=== PATIENT | male | born 2000 | race Hispanic/Latino ===

== ENCOUNTER 2021-01-21 19:42 | Inpatient (IN) | payer OTHER, SELFPAY ==
[~2021-01-21 19:42] MED LIST: Iopamidol-370 76% 500 ML 1 ML ONE
[2021-01-21] MEDS ORDERED: Fentanyl 100 MCG/2 ML VIAL ONE (19:58)
[2021-01-21 20:05] LABS: Hemoglobin 16.1 g/dL (14.0-18.0); Mean Corpuscular HGB CONC 35.4 g/dL (32.0-36.0); Mean Corpuscular Hemoglobin 31.2 pg (27.0-31.0); Mean Corpuscular Volume 88.2 fL (78.0-98.0); Platelet Count 325 thou/uL (130-400); Red Blood Cell (RBC) Count 5.14 mill/uL (4.70-6.10); White Blood Cell (WBC) Count 21.3 thou/uL (4.8-10.8)
[2021-01-21 20:20] LABS: Band 9 % (5-11); Lymphocytes 21 % (21-51); MDiff Complete? YES; Metamyelocyte 1 % (0-0); Monocytes 5 % (0-10); Myelocyte 3 % (0-0); Neutrophil 60 % (42-75); Nucleated RBC 1 % (0); Platelet Morphology Comment Appears Adequate; RBC Morphology Normal
[2021-01-21 20:24] LABS: ALT (SGPT) 99 U/L (8-55); AST (SGOT) 88 U/L (5-34); Albumin 4.6 g/dL (3.5-5.0); Alkaline Phosphatase 89 U/L (40-110); Anion Gap 14 mmol/L (10-20); BUN (Urea Nitrogen) 14 mg/dL (8.9-20.6); Bilirubin, Total 0.7 mg/dL (0.2-1.2); Calc. Creatinine Clearance 0 mL/min (70-130); Calcium 9.5 mg/dL (7.8-10.44); Carbon Dioxide 23 mmol/L (22-29); Chloride 108 mmol/L (98-107); Globulin 2.7 g/dL (2.4-3.5); Glucose 127 mg/dL (70-105); Potassium 4.1 mmol/L (3.5-5.1); Protein, Total 7.3 g/dL (6.0-8.3); Sodium 141 mmol/L (136-145)
[2021-01-21] MEDS ORDERED: Boostrix 0.5 ML (Tdap) VIAL ONE (20:35)
[2021-01-21 22:28] LABS: SARS-CoV-2 NAA Rapid Test Not Detected (NotDetected)
[2021-01-21] MEDS ORDERED: Dextrose 50% Abboject 50 ML SYRINGE SLOW IVP PRN (23:15)
[2021-01-21] MEDS ORDERED: Ondansetron PF 4 MG/2 ML Vial IVP PRN (23:15)
[2021-01-21] MEDS ORDERED: traMADol HCl 50 MG TAB PO PRN (23:15)
[2021-01-21] MEDS ORDERED: Promethazine HCl 25 MG/ML VIAL IM PRN ×2 (23:15)
[2021-01-21] MEDS ORDERED: hydrALAZINE 20 MG/ML VIAL SLOW IVP PRN (23:15)
[2021-01-21] MEDS ORDERED: Ondansetron ODT 4 MG TAB PO PRN (23:15)
[2021-01-21] MEDS ORDERED: Cyclobenzaprine 10 MG TAB PO PRN (23:15)
[2021-01-21] MEDS ORDERED: Dextrose 5% in Water 1,000 ML IV PRN (23:15)
[2021-01-21] MEDS ORDERED: Famotidine 20 MG TAB PO SCH (23:30)
[2021-01-21] MEDS: Sodium Chloride 0.9% 1,000 ML IV SCH (23:35)
[2021-01-21] MEDS: Acetaminophen 500 MG TAB PO SCH (23:36)
[2021-01-21] MEDS: traMADol HCl 50 MG TAB PO SCH (23:37)
[2021-01-21] MEDS: Morphine 2 MG/ML VIAL SLOW IVP PRN (23:39)
[2021-01-21 23:57] VITALS: BMI 40.6
[2021-01-22 00:06] LABS: Hemoglobin 13.9 g/dL (14.0-18.0); Platelet Count 319 thou/uL (130-400)
[2021-01-22] MEDS: Morphine 2 MG/ML VIAL SLOW IVP PRN ×2 (01:39→04:01)
[2021-01-22] MEDS ORDERED: Lactated Ringer's 500 ML IV SCH (02:15)
[2021-01-22 03:27] LABS: #Eosinphils 0.1 thou/uL (0.0-0.7); #Lymphocytes 1.1 thou/uL (1.20-3.40); #Monocytes 1.6 thou/uL (0.11-0.59); #Neutrophils 15.7 thou/uL (1.40-6.50); %Eosinophils 0.4 % (0.0-10.0); %Lymphocytes 5.9 % (21.0-51.0); %Monocytes 8.8 % (0.0-10.0); %Neutrophils 84.8 % (42.0-75.0); Hemoglobin 12.8 g/dL (14.0-18.0); Mean Corpuscular HGB CONC 34.6 g/dL (32.0-36.0); Mean Corpuscular Hemoglobin 30.3 pg (27.0-31.0); Mean Corpuscular Volume 87.7 fL (78.0-98.0); Platelet Count 295 thou/uL (130-400); RBC Distribution Width 12.1 % (11.5-14.5); Red Blood Cell (RBC) Count 4.24 mill/uL (4.70-6.10); White Blood Cell (WBC) Count 18.5 thou/uL (4.8-10.8)
[2021-01-22 03:50] LABS: Anion Gap 14 mmol/L (10-20); BUN (Urea Nitrogen) 17 mg/dL (8.9-20.6); Calc. Creatinine Clearance 186 mL/min (70-130); Calcium 8.4 mg/dL (7.8-10.44); Carbon Dioxide 20 mmol/L (22-29); Chloride 109 mmol/L (98-107); Glucose 158 mg/dL (70-105); Magnesium 1.7 mg/dL (1.6-2.6); Phosphorus 4.4 mg/dL (2.3-4.7); Potassium 4.4 mmol/L (3.5-5.1); Sodium 139 mmol/L (136-145)
[2021-01-22] MEDS: Acetaminophen 500 MG TAB PO SCH ×4 (05:39→23:20)
[2021-01-22] MEDS ORDERED: Ibuprofen 800 MG TAB PO SCH (06:00)
[2021-01-22] MEDS ORDERED: CEFAZOLIN 2 GM in Premix Bag 1 BAG IVPB SCH (06:30)
[2021-01-22] MEDS: Famotidine 20 MG TAB PO SCH ×2 (07:11→20:52)
[2021-01-22] MEDS: traMADol HCl 50 MG TAB PO SCH ×4 (07:23→23:21)
[2021-01-22] MEDS: Sodium Chloride 0.9% 1,000 ML IV SCH ×4 (07:23→23:23)
[2021-01-22] MEDS ORDERED: Magnesium 2 GM/50 ML 2 GM in Premix Bag 1 BAG IVPB SCH (07:45)
[2021-01-22 10:44] LABS: Lactic Acid 2.2 mmol/L (0.5-2.2)
[2021-01-22] MEDS: Ibuprofen 800 MG TAB PO SCH ×2 (11:35→18:07)
[2021-01-22] MEDS ORDERED: Midazolam HCl 2 mg/2 ml Vial ONE (12:00)
[2021-01-22] MEDS ORDERED: Fentanyl 250 MCG/5 ML VIAL ONE (12:00)
[2021-01-22] MEDS ORDERED: Lidocaine 2% Jelly 5 ML TUBE ONE (12:00)
[2021-01-22] MEDS ORDERED: Vecuronium 10 MG VIAL ONE (12:35)
[2021-01-22] MEDS ORDERED: Dexamethasone 20 MG/5 ML VIAL ONE (12:35)
[2021-01-22] MEDS ORDERED: Glycopyrrolate 0.2 MG/ML 5 ML SYRINGE ONE (12:35)
[2021-01-22] MEDS ORDERED: Lidocaine 1% PF 5 ML VIAL ONE (12:35)
[2021-01-22] MEDS ORDERED: Rocuronium Bromide 10 MG/ML (10ML VIAL) ONE (12:35)
[2021-01-22] MEDS ORDERED: Ondansetron PF 4 MG/2 ML Vial ONE (12:35)
[2021-01-22] MEDS ORDERED: PHENYLEPHRINE-NS 100 MCG/ML 10 ML SYRINGE ONE (12:35)
[2021-01-22] MEDS ORDERED: PROPOFOL 200 MG/20 ML VIAL ONE (12:35)
[2021-01-22] MEDS ORDERED: Albumin 5% 500 ML ONE (13:03)
[2021-01-22] MEDS ORDERED: HYDROmorphone 2 MG/ML VIAL SLOW IVP PRN (16:36)
[2021-01-22] MEDS ORDERED: Promethazine HCl 25 MG/ML VIAL IM PRN (16:36)
[2021-01-22] MEDS ORDERED: Meperidine HCl/PF 25 MG/ML VIAL SLOW IVP PRN ×2 (16:36)
[2021-01-22] MEDS ORDERED: Promethazine HCl 25 MG/ML VIAL IVPB PRN (16:36)
[2021-01-22] MEDS ORDERED: Ondansetron HCl/PF 4 MG/2 ML Vial IVP PRN (16:36)
[2021-01-22] MEDS ORDERED: hydrALAZINE 20 MG/ML VIAL ONE (17:06)
[2021-01-22] MEDS ORDERED: Fentanyl 100 MCG/2 ML VIAL ONE (17:07)
[2021-01-22] MEDS: CEFAZOLIN 2 GM in Premix Bag 1 BAG IVPB SCH (21:09)
[2021-01-23] MEDS: Ibuprofen 800 MG TAB PO SCH ×3 (00:59→18:21)
[2021-01-23] MEDS: CEFAZOLIN 2 GM in Premix Bag 1 BAG IVPB SCH ×2 (05:16→15:30)
[2021-01-23] MEDS: Acetaminophen 500 MG TAB PO SCH ×3 (05:17→18:22)
[2021-01-23] MEDS: traMADol HCl 50 MG TAB PO SCH ×3 (05:17→18:22)
[2021-01-23] MEDS: Sodium Chloride 0.9% 1,000 ML IV SCH ×3 (07:04→18:53)
[2021-01-23] MEDS: Famotidine 20 MG TAB PO SCH ×2 (07:04→20:43)
[2021-01-23 07:39] LABS: #Lymphocytes 1.2 thou/uL (1.20-3.40); #Neutrophils 6.1 thou/uL (1.40-6.50); %Basophils 0.2 % (0.0-1.0); %Eosinophils 0.3 % (0.0-10.0); %Neutrophils 73.5 % (42.0-75.0); Hemoglobin 7.2 g/dL (14.0-18.0); Mean Corpuscular HGB CONC 35.1 g/dL (32.0-36.0); Mean Corpuscular Hemoglobin 31.2 pg (27.0-31.0); Mean Platelet Volume 8.3 fL (7.4-10.4); Platelet Count 175 thou/uL (130-400); RBC Distribution Width 11.8 % (11.5-14.5); White Blood Cell (WBC) Count 8.3 thou/uL (4.8-10.8)
[2021-01-23 08:06] LABS: Anion Gap 8 mmol/L (10-20); BUN (Urea Nitrogen) 18 mg/dL (8.9-20.6); Calc. Creatinine Clearance 193 mL/min (70-130); Carbon Dioxide 26 mmol/L (22-29); Chloride 107 mmol/L (98-107); Glucose 122 mg/dL (70-105); Magnesium 2.2 mg/dL (1.6-2.6); Phosphorus 2.5 mg/dL (2.3-4.7); Potassium 4.3 mmol/L (3.5-5.1); Sodium 137 mmol/L (136-145)
[2021-01-23 08:33] LABS: CK (CPK) 5288 U/L (30-200)
[2021-01-23] MEDS ORDERED: Enoxaparin Sodium 30 MG/0.3 ML SYRINGE SC SCH (09:00)
[2021-01-23] MEDS: Gabapentin 300 MG CAP PO SCH ×3 (09:11→20:44)
[2021-01-23] MEDS: Senokot S 8.6-50 MG TAB PO SCH ×2 (09:11→20:43)
[2021-01-23] MEDS: Polyethylene Glycol 3350 17 GM Packet PO SCH (09:11)
[2021-01-24] MEDS: Acetaminophen 500 MG TAB PO SCH ×4 (00:22→18:07)
[2021-01-24] MEDS: traMADol HCl 50 MG TAB PO SCH ×4 (00:26→18:06)
[2021-01-24] MEDS: Sodium Chloride 0.9% 1,000 ML IV SCH ×3 (00:26→08:39)
[2021-01-24] MEDS: Ibuprofen 800 MG TAB PO SCH ×2 (01:21→08:38)
[2021-01-24 07:38] LABS: #Eosinphils 0.2 thou/uL (0.0-0.7); #Lymphocytes 1.3 thou/uL (1.20-3.40); #Neutrophils 6.4 thou/uL (1.40-6.50); %Basophils 0.5 % (0.0-1.0); %Eosinophils 1.7 % (0.0-10.0); %Lymphocytes 15.2 % (21.0-51.0); %Monocytes 10.7 % (0.0-10.0); %Neutrophils 71.9 % (42.0-75.0); Hemoglobin 6.8 g/dL (14.0-18.0); Mean Corpuscular HGB CONC 35.2 g/dL (32.0-36.0); Mean Corpuscular Hemoglobin 31.4 pg (27.0-31.0); Mean Corpuscular Volume 89.3 fL (78.0-98.0); Mean Platelet Volume 8.1 fL (7.4-10.4); Platelet Count 168 thou/uL (130-400); RBC Distribution Width 11.9 % (11.5-14.5); Red Blood Cell (RBC) Count 2.17 mill/uL (4.70-6.10); White Blood Cell (WBC) Count 8.8 thou/uL (4.8-10.8)
[2021-01-24 08:15] LABS: CK (CPK) 6390 U/L (30-200)
[2021-01-24 08:23] LABS: Anion Gap 8 mmol/L (10-20); BUN (Urea Nitrogen) 10 mg/dL (8.9-20.6); Calc. Creatinine Clearance 248 mL/min (70-130); Calcium 8.2 mg/dL (7.8-10.44); Carbon Dioxide 26 mmol/L (22-29); Chloride 110 mmol/L (98-107); Glucose 109 mg/dL (70-105); Phosphorus 1.2 mg/dL (2.3-4.7); Potassium 3.7 mmol/L (3.5-5.1); Sodium 140 mmol/L (136-145)
[2021-01-24] MEDS: Famotidine 20 MG TAB PO SCH ×2 (08:38→20:42)
[2021-01-24] MEDS: Gabapentin 300 MG CAP PO SCH ×3 (08:38→20:42)
[2021-01-24] MEDS: Polyethylene Glycol 3350 17 GM Packet PO SCH (08:38)
[2021-01-24] MEDS: Senokot S 8.6-50 MG TAB PO SCH ×2 (08:38→20:42)
[2021-01-24] MEDS ORDERED: Potassium Phosphate 30 MMOL in Sodium Chloride 0.9% 250 ML 250 ML IVPB SCH (08:45)
[2021-01-25] MEDS: Sodium Chloride 0.9% 1,000 ML IV SCH ×7 (00:29→23:50)
[2021-01-25] MEDS: Acetaminophen 500 MG TAB PO SCH ×5 (00:30→23:45)
[2021-01-25] MEDS: traMADol HCl 50 MG TAB PO SCH ×5 (00:32→23:46)
[2021-01-25] MEDS ORDERED: Albuterol Sulfate 1.25 MG/3 ML NEB NEB SCH (08:15)
[2021-01-25] MEDS: Famotidine 20 MG TAB PO SCH ×2 (08:33→20:15)
[2021-01-25] MEDS: Polyethylene Glycol 3350 17 GM Packet PO SCH (08:33)
[2021-01-25] MEDS: Senokot S 8.6-50 MG TAB PO SCH ×2 (08:33→20:18)
[2021-01-25] MEDS: Gabapentin 300 MG CAP PO SCH ×3 (08:34→20:16)
[2021-01-25 09:42] LABS: #Basophils 0.1 thou/uL (0.0-0.2); #Eosinphils 0.3 thou/uL (0.0-0.7); #Lymphocytes 1.3 thou/uL (1.20-3.40); #Monocytes 0.7 thou/uL (0.11-0.59); #Neutrophils 5.5 thou/uL (1.40-6.50); %Basophils 1.2 % (0.0-1.0); %Eosinophils 4.1 % (0.0-10.0); %Lymphocytes 15.8 % (21.0-51.0); %Monocytes 9.2 % (0.0-10.0); %Neutrophils 69.8 % (42.0-75.0); Hemoglobin 8.4 g/dL (14.0-18.0); Mean Corpuscular HGB CONC 34.7 g/dL (32.0-36.0); Mean Corpuscular Hemoglobin 30.4 pg (27.0-31.0); Mean Corpuscular Volume 87.6 fL (78.0-98.0); Mean Platelet Volume 7.8 fL (7.4-10.4); Platelet Count 214 thou/uL (130-400); RBC Distribution Width 13.1 % (11.5-14.5); Red Blood Cell (RBC) Count 2.77 mill/uL (4.70-6.10); White Blood Cell (WBC) Count 7.9 thou/uL (4.8-10.8)
[2021-01-25 10:09] LABS: Anion Gap 12 mmol/L (10-20); BUN (Urea Nitrogen) 10 mg/dL (8.9-20.6); Calc. Creatinine Clearance 251 mL/min (70-130); Calcium 8.4 mg/dL (7.8-10.44); Carbon Dioxide 26 mmol/L (22-29); Chloride 106 mmol/L (98-107); Glucose 122 mg/dL (70-105); Magnesium 1.9 mg/dL (1.6-2.6); Phosphorus 3.3 mg/dL (2.3-4.7); Potassium 3.6 mmol/L (3.5-5.1); Sodium 140 mmol/L (136-145)
[2021-01-25 10:18] LABS: CK (CPK) 7512 U/L (30-200)
[2021-01-25] MEDS ORDERED: Potassium Phosphate 15 MMOL in Sodium Chloride 0.9% 250 ML 250 ML IVPB SCH (10:45)
[2021-01-25] MEDS ORDERED: Magnesium 2 GM/50 ML 2 GM in Premix Bag 1 BAG IVPB SCH (10:45)
[2021-01-25] MEDS: Albuterol Sulfate 1.25 MG/3 ML NEB NEB SCH ×2 (15:59→22:06)
[2021-01-26] MEDS: traMADol HCl 50 MG TAB PO SCH ×4 (05:21→23:48)
[2021-01-26] MEDS: Acetaminophen 500 MG TAB PO SCH ×4 (05:22→23:48)
[2021-01-26 05:48] LABS: #Basophils 0.1 thou/uL (0.0-0.2); #Eosinphils 0.3 thou/uL (0.0-0.7); #Lymphocytes 1.8 thou/uL (1.20-3.40); #Neutrophils 4.5 thou/uL (1.40-6.50); %Basophils 0.9 % (0.0-1.0); %Lymphocytes 23.3 % (21.0-51.0); %Monocytes 12.5 % (0.0-10.0); %Neutrophils 59.3 % (42.0-75.0); Hemoglobin 8.1 g/dL (14.0-18.0); Mean Corpuscular HGB CONC 34.4 g/dL (32.0-36.0); Mean Corpuscular Hemoglobin 30.3 pg (27.0-31.0); Mean Platelet Volume 7.7 fL (7.4-10.4); Platelet Count 251 thou/uL (130-400); RBC Distribution Width 13.2 % (11.5-14.5); Red Blood Cell (RBC) Count 2.66 mill/uL (4.70-6.10); White Blood Cell (WBC) Count 7.6 thou/uL (4.8-10.8)
[2021-01-26 06:18] LABS: Anion Gap 11 mmol/L (10-20); BUN (Urea Nitrogen) 10 mg/dL (8.9-20.6); Calc. Creatinine Clearance 261 mL/min (70-130); Calcium 8.4 mg/dL (7.8-10.44); Carbon Dioxide 26 mmol/L (22-29); Chloride 107 mmol/L (98-107); Glucose 101 mg/dL (70-105); Magnesium 2.1 mg/dL (1.6-2.6); Potassium 4.8 mmol/L (3.5-5.1); Sodium 139 mmol/L (136-145)
[2021-01-26] MEDS: Albuterol Sulfate 1.25 MG/3 ML NEB NEB SCH (07:44)
[2021-01-26] MEDS: Gabapentin 300 MG CAP PO SCH ×3 (09:37→22:15)
[2021-01-26] MEDS: Famotidine 20 MG TAB PO SCH ×2 (09:37→22:14)
[2021-01-26] MEDS: Senokot S 8.6-50 MG TAB PO SCH ×2 (09:37→22:16)
[2021-01-26] MEDS: Polyethylene Glycol 3350 17 GM Packet PO SCH (09:38)
[2021-01-26] MEDS ORDERED: Albuterol Sulfate 1.25 MG/3 ML NEB NEB PRN (10:21)
[2021-01-26] MEDS: Sodium Chloride 0.9% 1,000 ML IV SCH ×3 (11:05→21:00)
[2021-01-26] MEDS: Ferrous Sulfate 325 MG TAB PO SCH (18:19)
[2021-01-26] MEDS: Ascorbic Acid 500 mg Chewable Tablet PO SCH (22:14)
[2021-01-27] MEDS: Sodium Chloride 0.9% 1,000 ML IV SCH (04:06)
[2021-01-27] MEDS: traMADol HCl 50 MG TAB PO SCH ×3 (05:29→18:36)
[2021-01-27] MEDS: Acetaminophen 500 MG TAB PO SCH ×3 (05:30→18:36)
[2021-01-27 06:09] LABS: #Basophils 0.1 thou/uL (0.0-0.2); #Eosinphils 0.4 thou/uL (0.0-0.7); #Lymphocytes 1.7 thou/uL (1.20-3.40); #Monocytes 1.2 thou/uL (0.11-0.59); #Neutrophils 6.4 thou/uL (1.40-6.50); %Basophils 0.5 % (0.0-1.0); %Eosinophils 4.5 % (0.0-10.0); %Lymphocytes 17.6 % (21.0-51.0); %Monocytes 12.2 % (0.0-10.0); %Neutrophils 65.1 % (42.0-75.0); Hemoglobin 8.2 g/dL (14.0-18.0); Mean Corpuscular HGB CONC 33.4 g/dL (32.0-36.0); Mean Corpuscular Hemoglobin 29.7 pg (27.0-31.0); Mean Corpuscular Volume 88.7 fL (78.0-98.0); Mean Platelet Volume 7.7 fL (7.4-10.4); Platelet Count 328 thou/uL (130-400); RBC Distribution Width 13.3 % (11.5-14.5); Red Blood Cell (RBC) Count 2.78 mill/uL (4.70-6.10); White Blood Cell (WBC) Count 9.8 thou/uL (4.8-10.8)
[2021-01-27 06:18] LABS: Anion Gap 12 mmol/L (10-20); BUN (Urea Nitrogen) 15 mg/dL (8.9-20.6); CK (CPK) 3990 U/L (30-200); Calc. Creatinine Clearance 245 mL/min (70-130); Carbon Dioxide 26 mmol/L (22-29); Chloride 104 mmol/L (98-107); Glucose 100 mg/dL (70-105); Phosphorus 4.5 mg/dL (2.3-4.7); Potassium 4.5 mmol/L (3.5-5.1); Sodium 137 mmol/L (136-145)
[2021-01-27] MEDS: Ferrous Sulfate 325 MG TAB PO SCH ×2 (08:26→16:38)
[2021-01-27] MEDS: Gabapentin 300 MG CAP PO SCH ×3 (08:26→21:02)
[2021-01-27] MEDS: Famotidine 20 MG TAB PO SCH ×2 (08:26→21:02)
[2021-01-27] MEDS: Ascorbic Acid 500 mg Chewable Tablet PO SCH ×2 (08:26→21:02)
[2021-01-27] MEDS: Polyethylene Glycol 3350 17 GM Packet PO SCH (08:27)
[2021-01-27] MEDS: Senokot S 8.6-50 MG TAB PO SCH ×2 (08:27→21:15)
[2021-01-28] MEDS: Acetaminophen 500 MG TAB PO SCH ×4 (00:17→18:31)
[2021-01-28] MEDS: traMADol HCl 50 MG TAB PO SCH ×4 (00:18→18:31)
[2021-01-28 06:49] LABS: Mean Corpuscular HGB CONC 33.9 g/dL (32.0-36.0); Mean Corpuscular Volume 88.4 fL (78.0-98.0); Mean Platelet Volume 7.2 fL (7.4-10.4); Platelet Count 410 thou/uL (130-400); RBC Distribution Width 13.2 % (11.5-14.5); Red Blood Cell (RBC) Count 3.01 mill/uL (4.70-6.10); White Blood Cell (WBC) Count 11.6 thou/uL (4.8-10.8)
[2021-01-28 07:04] LABS: Anion Gap 13 mmol/L (10-20); BUN (Urea Nitrogen) 20 mg/dL (8.9-20.6); Calc. Creatinine Clearance 222 mL/min (70-130); Calcium 9.3 mg/dL (7.8-10.44); Carbon Dioxide 27 mmol/L (22-29); Chloride 102 mmol/L (98-107); Glucose 102 mg/dL (70-105); Magnesium 2.2 mg/dL (1.6-2.6); Phosphorus 4.6 mg/dL (2.3-4.7); Potassium 4.3 mmol/L (3.5-5.1); Sodium 138 mmol/L (136-145)
[2021-01-28 08:26] LABS: Band 13 % (5-11); Eosinophils 9 % (0-10); Lymphocytes 11 % (21-51); MDiff Complete? YES; Metamyelocyte 3 % (0-0); Monocytes 12 % (0-10); Myelocyte 4 % (0-0); Neutrophil 48 % (42-75); Polychromasia MODERATE = 3-4 cells (100X) (0-2/hpf)
[2021-01-28] MEDS: Ferrous Sulfate 325 MG TAB PO SCH ×3 (08:53→20:45)
[2021-01-28] MEDS: Ascorbic Acid 500 mg Chewable Tablet PO SCH ×2 (08:54→20:44)
[2021-01-28] MEDS: Gabapentin 300 MG CAP PO SCH ×3 (08:54→20:45)
[2021-01-28] MEDS: Senokot S 8.6-50 MG TAB PO SCH ×2 (08:55→20:44)
[2021-01-28] MEDS: Polyethylene Glycol 3350 17 GM Packet PO SCH (08:55)
[2021-01-28] MEDS: Enoxaparin Sodium 30 MG/0.3 ML SYRINGE SC SCH (20:44)
[2021-01-29] MEDS: traMADol HCl 50 MG TAB PO SCH ×3 (01:08→11:54)
[2021-01-29] MEDS: Acetaminophen 500 MG TAB PO SCH ×3 (01:08→11:54)
[2021-01-29] MEDS: Ascorbic Acid 500 mg Chewable Tablet PO SCH (08:23)
[2021-01-29] MEDS: Ferrous Sulfate 325 MG TAB PO SCH (08:23)
[2021-01-29] MEDS: Enoxaparin Sodium 30 MG/0.3 ML SYRINGE SC SCH (08:23)
[2021-01-29] MEDS: Senokot S 8.6-50 MG TAB PO SCH (08:24)
[2021-01-29] MEDS: Polyethylene Glycol 3350 17 GM Packet PO SCH (08:24)
[2021-01-29] MEDS: Gabapentin 300 MG CAP PO SCH (08:24)
[2021-01-29 11:24] VITALS: BP 131/80; TEMP 98.3
[2021-01-29 12:48] LABS: SARS-CoV-2 PCR by NAA Not Detected (NotDetected)
== END 2021-01-29 15:10 | disposition home or self-care (01) | DRG 956 ==
LOC: ERS 19:42 → IMCU/EMU 20:44 → SURG B 01-23 18:06
PROVIDERS: ADMIT Specialist; ATTEND Specialist
PROC: 0QS836Z Reposition Right Femoral Shaft with Intramedullary Internal Fixation Device, Percutaneous Approach (ICD-10-PCS; principal; 2021-01-22)
PROC: 0QS204Z Reposition Right Pelvic Bone with Internal Fixation Device, Open Approach (ICD-10-PCS; 2021-01-22)
PROC: 0SS734Z Reposition Right Sacroiliac Joint with Internal Fixation Device, Percutaneous Approach (ICD-10-PCS; 2021-01-22)
PROC: 30233N1 Transfusion of Nonautologous Red Blood Cells into Peripheral Vein, Percutaneous Approach (ICD-10-PCS; 2021-01-23)
DX: S72.301A Unspecified fracture of shaft of right femur, initial encounter for closed fracture (principal); S06.6X0A Traumatic subarachnoid hemorrhage without loss of consciousness, initial encounter; S22.029A Unspecified fracture of second thoracic vertebra, initial encounter for closed fracture; S22.039A Unspecified fracture of third thoracic vertebra, initial encounter for closed fracture; S22.049A Unspecified fracture of fourth thoracic vertebra, initial encounter for closed fracture; S32.029A Unspecified fracture of second lumbar vertebra, initial encounter for closed fracture; S32.039A Unspecified fracture of third lumbar vertebra, initial encounter for closed fracture; S32.049A Unspecified fracture of fourth lumbar vertebra, initial encounter for closed fracture; S27.0XXA Traumatic pneumothorax, initial encounter; D62 Acute posthemorrhagic anemia; M62.82 Rhabdomyolysis; J98.11 Atelectasis; V23.4XXA Motorcycle driver injured in collision with car, pick-up truck or van in traffic accident, initial encounter; S01.81XA Laceration without foreign body of other part of head, initial encounter; R40.2413 Glasgow coma scale score 13-15, at hospital admission; S33.4XXA Traumatic rupture of symphysis pubis, initial encounter; S76.911A Strain of unspecified muscles, fascia and tendons at thigh level, right thigh, initial encounter; S30.0XXA Contusion of lower back and pelvis, initial encounter; S70.11XA Contusion of right thigh, initial encounter; Z23 Encounter for immunization; Z20.822 Contact with and (suspected) exposure to COVID-19
CPT/HCPCS: 12011; 36415; 36416; 36430; 70450; 70486; 71045; 71260; 72125; 72170; 72190; 74177; 76000; 80048; 80053; 82550; 83605; 83735; 84100; 85025; 86850; 86900; 86901; 90471; 90715; 93970; 94640; 96374; C1713; C1769; G0390; J0360; J0690; J1100; J1650; J2250; J2270; J2405; J2550; J2704; J3010; J3475; J7050; J7120; P9016; P9045; Q0162; Q9967; U0002; U0003; U0005